=== PATIENT | male | born 1935 | race Caucasian/White ===

== ENCOUNTER 2017-07-17 08:42 | Emergency (ER) | payer MEDICARE ==
[2017-07-17 08:46] VITALS: BP 136/81
--- NOTE | 2017-07-17 09:13 | EDM.PDOC ---
ED HPI GENERAL MEDICAL PROBLEM - General Chief Complaint: General Stated Complaint: MEDICAL VIA [facility] Time Seen by Provider: 07/17/17 09:10 Source of Information: Reports: Patient History Limitations: Reports: No Limitations - History of Present Illness INITIAL COMMENTS - FREE TEXT/NARRATIVE: pt had an episode when he was eating breakfast where he felt very weak. he became shakey and very cool and clamy. Onset: Today, Sudden Duration: Minutes:, Other ( the episode lasted for about 20 minutes. ) Location: Reports: Generalized Associated Symptoms: Reports: Diaphoresis Upper Abdomen Pain Score (Numeric/FACES): 2 - Related Data Allergies Allergy/AdvReac Type Severity Reaction Status Date / Time No Known Allergies Allergy Verified 07/17/17 08:54 Home Meds: Home Meds Clotrimazole/Betamethasone Dip [Lotrisone Cream] 1 applic TP BID 07/30/15 [ History] [place]-3/DHA/Epa/Fish Oil [[place]-3 Fish Oil 1,200 MG Sfgl] 1,200 mg PO DAILY [History] Tamsulosin HCl [Flomax] 0.4 mg PO DAILY 07/30/15 [History] atorvaSTATin [Lipitor] 10 mg PO BEDTIME 07/30/15 [History] Omeprazole 20 mg PO DAILY 07/17/17 [History] traMADol HCl [Tramadol HCl] 50 mg PO Q6H PRN 07/17/17 [History] Past Medical History HEENT History: Reports: Hard of Hearing, Impaired Vision Other HEENT History: wears glasses and hearing aids Cardiovascular History: Reports: High Cholesterol Genitourinary History: Reports: Prostate Disorder, UTI, Recurrent Musculoskeletal History: Reports: Fracture Hematologic History: Reports: Anemia, Iron Deficiency - Infectious Disease History Infectious Disease History: Reports: Chicken Pox, Scarlet Fever, Shingles - Past Surgical History GI Surgical History: Reports: Appendectomy, Colonoscopy Social & Family History - Family History Family Medical History: Noncontributory - Tobacco Use Smoking Status *Q: Never Smoker - Caffeine Use Caffeine Use: Reports: None - Recreational Drug Use Recreational Drug Use: No ED ROS GENERAL - Review of Systems Review Of Systems: See Below Constitutional: Reports: Weakness, Other ( episode of weakness and shaking. He was started on tramodol\ monday-- 5 days ago.) HEENT: Reports: No Symptoms Respiratory: Reports: No Symptoms Cardiovascular: Reports: No Symptoms Endocrine: Reports: No Symptoms GI/Abdominal: Reports: No Symptoms : Reports: No Symptoms Musculoskeletal: Reports: No Symptoms Skin: Reports: No Symptoms Neurological: Reports: Dizziness, Other (pt felt weak and he had an episode of shaking. He was recently started on tramodol. ) Psychiatric: Reports: No Symptoms ED EXAM, GENERAL - Physical Exam Exam: See Below Free Text/Narrative:: pt arrived after he had marked shaking. He did not have a fever. He felt very weak. Exam Limited By: No Limitations General Appearance: Alert, Anxious, Mild Distress, Other (pupils are equal and reactive. ) Ears: Normal TMs Nose: Normal Inspection Throat/Mouth: Normal Inspection Head: Atraumatic Neck: Normal Inspection Respiratory/Chest: No Respiratory Distress Cardiovascular: Regular Rate, Rhythm GI/Abdominal: Soft, Non-Tender (Male) Exam: Deferred Rectal (Males) Exam: Deferred Back Exam: Normal Inspection Extremities: Normal Inspection Neurological: Alert, Oriented, Normal Cognition Psychiatric: Normal Affect Course - Vital Signs Last Recorded V/S: Last Vital Signs Temp 36.7 C 07/17/17 08:48 Pulse 65 07/17/17 08:48 Resp 20 07/17/17 08:48 BP 136/81 07/17/17 08:48 Pulse Ox 95 07/17/17 08:48 Orthostatic Blood Pressure [ 107/72 Standing] Orthostatic Blood Pressure [ 111/78 Sitting] Orthostatic Blood Pressure [ 127/78 Supine] - Orders/Labs/Meds Orders: Active Orders 24 hr Category Date Time Status EKG Documentation Completion [RC] ASDIRECTED Care 07/17/17 09:13 Active Orthostatic Vital Signs [RC] ASDIRECTED Care 07/17/17 09:50 Active UA W/MICROSCOPIC [URIN] Urgent Lab 07/17/17 09:53 Ordered EKG 12 Lead [EK] Routine Ther 07/17/17 09:13 Ordered Labs: Laboratory Tests 07/17/17 07/17/17 07/17/17 Range/Units 09:16 09:16 09:16 WBC 6.5 (4.5-11.0) K/uL RBC 4.55 (4.30-5.90) M/uL Hgb 14.3 (12.0-15.0) g/dL Hct 42.1 (40.0-54.0) % MCV 93 (80-98) fL MCH 31 (27-31) pg MCHC 34 (32-36) % Plt Count 201 (150-400) K/uL Neut % (Auto) 77 H (36-66) % Lymph % (Auto) 14 L (24-44) % [place] % (Auto) 8 H (2-6) % Eos % (Auto) 1 L (2-4) % Baso % (Auto) 0 (0-1) % Sodium 137 L (140-148) mmol/L Potassium 3.6 (3.6-5.2) mmol/L Chloride 102 (100-108) mmol/L Carbon Dioxide 26 (21-32) mmol/L Anion Gap 12.6 (5.0-14.0) mmol/L BUN 17 (7-18) mg/dL Creatinine 1.0 (0.8-1.3) mg/dL Est Cr Clr Drug Dosing 59.61 mL/min Estimated GFR (MDRD) > 60 (>60) Glucose 138 H (74-106) mg/dL Calcium 8.6 (8.5-10.1) mg/dL Total Bilirubin 0.9 (0.2-1.0) mg/dL AST 20 (15-37) U/L ALT 22 (12-78) U/L Alkaline Phosphatase 156 H (46-116) U/L Troponin I < 0.017 (0.000-0.056) ng/mL Total Protein 6.7 (6.4-8.2) g/dL Albumin 3.5 (3.4-5.0) g/dL Globulin 3.2 (2.3-3.5) g/dL Albumin/Globulin Ratio 1.1 L (1.2-2.2) Urine Color Urine Appearance Urine pH (4.5-8.0) Ur Specific [place] (1.008-1.030) Urine Protein (NEGATIVE) mg/dL Urine Glucose (UA) (NEGATIVE) mg/dL Urine Ketones (NEGATIVE) mg/dL Urine Occult Blood (NEGATIVE) Urine Nitrite (NEGAITVE) Urine Bilirubin (NEGATIVE) Urine Urobilinogen (NORMAL) mg/dL Ur Leukocyte Esterase (NEGATIVE) Urine RBC (0-5) Urine WBC (0-5) Ur Epithelial Cells Amorphous Sediment Urine Bacteria Urine Mucus 07/17/17 Range/Units 09:53 WBC (4.5-11.0) K/uL RBC (4.30-5.90) M/uL Hgb (12.0-15.0) g/dL Hct (40.0-54.0) % MCV (80-98) fL MCH (27-31) pg MCHC (32-36) % Plt Count (150-400) K/uL Neut % (Auto) (36-66) % Lymph % (Auto) (24-44) % [place] % (Auto) (2-6) % Eos % (Auto) (2-4) % Baso % (Auto) (0-1) % Sodium (140-148) mmol/L Potassium (3.6-5.2) mmol/L Chloride (100-108) mmol/L Carbon Dioxide (21-32) mmol/L Anion Gap (5.0-14.0) mmol/L BUN (7-18) mg/dL Creatinine (0.8-1.3) mg/dL Est Cr Clr Drug Dosing mL/min Estimated GFR (MDRD) (>60) Glucose (74-106) mg/dL Calcium (8.5-10.1) mg/dL Total Bilirubin (0.2-1.0) mg/dL AST (15-37) U/L ALT (12-78) U/L Alkaline Phosphatase (46-116) U/L Troponin I (0.000-0.056) ng/mL Total Protein (6.4-8.2) g/dL Albumin (3.4-5.0) g/dL Globulin (2.3-3.5) g/dL Albumin/Globulin Ratio (1.2-2.2) Urine Color Yellow Urine Appearance Clear Urine pH 9.0 H (4.5-8.0) Ur Specific [place] 1.015 (1.008-1.030) Urine Protein Negative (NEGATIVE) mg/dL Urine Glucose (UA) Normal (NEGATIVE) mg/dL Urine Ketones Negative (NEGATIVE) mg/dL Urine Occult Blood Negative (NEGATIVE) Urine Nitrite Negative (NEGAITVE) Urine Bilirubin Negative (NEGATIVE) Urine Urobilinogen Normal (NORMAL) mg/dL Ur Leukocyte Esterase Negative (NEGATIVE) Urine RBC 0-5 (0-5) Urine WBC Not seen (0-5) Ur Epithelial Cells Not seen Amorphous Sediment Rare Urine Bacteria Not seen Urine Mucus Not seen - Re-Assessments/Exams Free Text/Narrative Re-Assessment/Exam: 07/17/17 11:39 pt arrived with a episode of shaking and weakness. He felt fine by the time he arrived. He had a normal trop, normal ekg, and his lab work looks ok. 07/17/17 11:40 07/17/17 11:41 there is a concern regarding a tramodol reaction Departure - Departure Time of Disposition: 11:29 Disposition: Home, Self-Care 01 Condition: Fair Clinical Impression: Intolerance of drug, Back complaints - Discharge Information Referrals: PCP,None [Primary Care Provider] - Forms: ED Department Discharge Care Plan Goals: stop tramodol, push fluids, plain tylenol 650 for pain q6h prn. If patient has severe pain tylenol 3 1 tab q6h prn for pain. rtc if problems, appt with Dr Dos Santos in 3-4 days. Use MOM for the constipation. - My Orders Last 24 Hours: My Active Orders 07/17/17 09:13 EKG Documentation Completion [RC] ASDIRECTED EKG 12 Lead [EK] Routine 07/17/17 09:50 Orthostatic Vital Signs [RC] ASDIRECTED 07/17/17 09:53 UA W/MICROSCOPIC [URIN] Urgent - Assessment/Plan Last 24 Hours: My Active Orders 07/17/17 09:13 EKG Documentation Completion [RC] ASDIRECTED EKG 12 Lead [EK] Routine 07/17/17 09:50 Orthostatic Vital Signs [RC] ASDIRECTED 07/17/17 09:53 UA W/MICROSCOPIC [URIN] Urgent
--- NOTE | 2017-07-17 09:49 | CR ---
CHEST: 2 view CLINICAL HISTORY:Shortness of breath COMPARISON:2009 FINDINGS: Heart and pulmonary vascularity appear normal. There are atherosclerotic changes in the ao rta.. No infiltrate effusion or pneumothorax seen. Lungs are hyperaerated.. IMPRESSION: Mild hyperaeration. No acute cardiopulmonary process
== END 2017-07-17 11:45 | disposition home or self-care (01) ==
LOC: JP.ED 08:42
DX: R53.1 Weakness (principal); T40.4X5A Adverse effect of other synthetic narcotics, initial encounter; Z79.899 Other long term (current) drug therapy
CPT/HCPCS: 36415; 71046; 71046-26; 80053; 81001; 84484; 85025; 93005; 99284-25

== ENCOUNTER 2019-04-03 15:46 | Emergency (ER) | payer MEDICARE ==
--- NOTE | 2019-04-03 17:03 | EDM.PDOC ---
ED HPI GENERAL MEDICAL PROBLEM - General Chief Complaint: Chest Pain Stated Complaint: CHEST PAIN Time Seen by Provider: 04/03/19 16:35 Source of Information: Reports: Patient, Family History Limitations: Reports: No Limitations - History of Present Illness INITIAL COMMENTS - FREE TEXT/NARRATIVE: 83-year-old male who has a 30-day event monitor in place to monitor recurring atrial fibrillation was started on metoprolol and Eliquis on March 11. Today he was having a fairly persistent episode of irregular heartbeat with some mild chest pressure so called the cardiology department and was told to come to the emergency room. He arrived in atrial fibrillation with a rate of 110-120. Very slight chest pressure, no shortness of breath. Onset: Sudden (Palpitations started fairly suddenly a few hours ago) Location: Reports: Chest Associated Symptoms: Reports: Chest Pain (Minimal chest pressure), Other ( Palpitations). Denies: Fever/Chills, Nausea/Vomiting, Shortness of Breath Chest Pain Score (Numeric/FACES): 3 - Related Data Allergies Allergy/AdvReac Type Severity Reaction Status Date / Time No Known Allergies Allergy Verified 10/24/17 08:54 Home Meds: Home Meds Clotrimazole/Betamethasone Dip [Lotrisone Cream] 1 applic TP BID 07/30/15 [ History] [place]-3/DHA/Epa/Fish Oil [[place]-3 Fish Oil 1,200 MG Sfgl] 500 mg PO DAILY [History] Tamsulosin HCl [Flomax] 0.4 mg PO DAILY 07/30/15 [History] atorvaSTATin [Lipitor] 10 mg PO BEDTIME 07/30/15 [History] Acetaminophen [Tylenol Arthritis] 1 tab PO BEDTIME 04/03/19 [History] Apixaban [Eliquis] 1 tab PO BID 04/03/19 [History] Cholecalciferol (Vitamin D3) [D3-2000] 1 cap PO DAILY 04/03/19 [History] Metoprolol Tartrate 12.5 mg PO BID 04/03/19 [History] Past Medical History HEENT History: Reports: Hard of Hearing, Impaired Vision Other HEENT History: wears glasses and hearing aids Cardiovascular History: Reports: High Cholesterol Genitourinary History: Reports: BPH, Prostate Disorder, UTI, Recurrent Musculoskeletal History: Reports: Fracture Hematologic History: Reports: Anemia, Iron Deficiency - Infectious Disease History Infectious Disease History: Reports: Chicken Pox, Measles, Scarlet Fever - Past Surgical History GI Surgical History: Reports: Appendectomy, Colonoscopy Social & Family History - Family History Family Medical History: Noncontributory - Tobacco Use Smoking Status *Q: Former Smoker Years of Tobacco use: 5 Packs/Tins Daily: 1 Used Tobacco, but Quit: Yes Month/Year Tobacco Last Used: 11/1965 - Caffeine Use Caffeine Use: Reports: None - Recreational Drug Use Recreational Drug Use: No ED ROS GENERAL - Review of Systems Review Of Systems: See Below Constitutional: Denies: Fever, Chills, Malaise HEENT: Reports: No Symptoms Respiratory: Denies: Shortness of Breath Cardiovascular: Reports: Chest Pain, Palpitations GI/Abdominal: Denies: Abdominal Pain, Nausea, Vomiting Skin: Reports: No Symptoms Neurological: Denies: Dizziness, Headache Psychiatric: Reports: No Symptoms ED EXAM, GENERAL - Physical Exam Exam: See Below Exam Limited By: No Limitations General Appearance: Alert, No Apparent Distress Eye Exam: Bilateral Eye: Normal Inspection Head: Atraumatic Respiratory/Chest: No Respiratory Distress, Lungs Clear Cardiovascular: Irregularly Irregular GI/Abdominal: Soft, Non-Tender Extremities: Normal Inspection. No: Pedal Edema Neurological: Alert, Oriented, No Motor/Sensory Deficits Psychiatric: Normal Affect, Normal Mood Skin Exam: Warm, Dry Course - Vital Signs Last Recorded V/S: Last Vital Signs Temp 96.2 F L 04/03/19 16:23 Pulse 60 04/03/19 17:14 Resp 10 L 04/03/19 17:14 BP 118/82 04/03/19 17:14 Pulse Ox 97 04/03/19 17:14 - Orders/Labs/Meds Labs: Laboratory Tests 04/03/19 Range/Units 17:02 Troponin I < 0.017 (0.000-0.056) ng/mL - Re-Assessments/Exams Free Text/Narrative Re-Assessment/Exam: 04/03/19 17:04 15 minutes after the patient arrived, he converted into normal sinus rhythm. His symptoms resolved. A troponin was obtained and the patient was kept on the cardiac cath technologist. 04/03/19 17:41 Patient remained in normal sinus rhythm for over 45 minutes, troponin returned 0 and he was also asymptomatic. Continue his medications and recheck as scheduled. Departure - Departure Time of Disposition: 17:56 Disposition: Home, Self-Care 01 Clinical Impression: Paroxysmal atrial fibrillation with RVR Instructions: Atrial Fibrillation, [id number] Referrals: Karen Moise MD [Primary Care Provider] - Forms: ED Department Discharge Care Plan Goals: Continue your medications including a full pill of metoprolol twice daily. Return if symptoms are recurring and are persistent, even if you take an extra metoprolol. Especially if short of breath, weak, or chest pain. Otherwise recheck with your center customer service associate as scheduled. Sepsis Event Note - Evaluation Sepsis Screening Result: No Definite Risk - Focused Exam Date Exam was Performed: 04/04/19 Time Exam was Performed: 12:26
[2019-04-03 17:14] VITALS: PULSE 60
[2019-04-03 17:15] VITALS: BP 118/82
== END 2019-04-03 17:57 | disposition home or self-care (01) ==
LOC: JP.ED 15:46
DX: I48.91 Unspecified atrial fibrillation (principal); Z79.899 Other long term (current) drug therapy; Z87.891 Personal history of nicotine dependence
CPT/HCPCS: 36415; 84484; 99283; 99284

== ENCOUNTER 2022-08-22 14:11 | Emergency (ER) | payer MEDICARE ==
[2022-08-22 16:12] LABS: BASOPHILS ABSOLUTE AUTO 0.02 K/uL (0.00-0.10); BASOPHILS PERCENT AUTO 0.3 % (0.1-1.3); EOSINOPHILS ABSOLUTE AUTO 0.02 K/uL (0.00-0.40); EOSINOPHILS PERCENT AUTO 0.3 % (0.0-5.4); HEMATOCRIT 41.5 % (38.4-49.7); HEMOGLOBIN 14.3 g/dL (12.9-16.9); IMMATURE GRAN ABSOLUTE AUTO 0.02 K/uL (0.00-0.23); IMMATURE GRAN PERCENT AUTO 0.3 % (0.0-0.7); LYMPHOCYTES ABSOLUTE AUTO 2.33 K/uL (0.8-3.3); LYMPHOCYTES PERCENT AUTO 32.2 % (11.4-47.7); MEAN CORPUSCULAR HEMOGLOBIN 32.2 pg (31.6-35.5); MEAN CORPUSCULAR HGB CONC 34.5 g/dL (31.6-35.5); MEAN CORPUSCULAR VOLUME 93.5 fL (81.4-99.0); MONOCYTES PERCENT AUTO 8.3 % (3.3-12.6); NEUTROPHILS ABSOLUTE AUTO 4.25 K/uL (1.0-7.6); NEUTROPHILS PERCENT AUTO 58.6 % (40.0-78.1); PLATELET COUNT,PLT 149 K/uL (130-375); RED BLOOD CELL COUNT 4.44 M/uL (4.14-5.76); WHITE BLOOD CELL COUNT,WBC 7.2 K/uL (3.2-11.0)
[2022-08-22 16:33] LABS: CALCIUM 8.9 mg/dL (8.5-10.1); CREATININE 0.8 mg/dL (0.8-1.3); EST CRCL DRUG DOSING (CG) 67.98 mL/min; MAGNESIUM 2.1 mg/dL (1.8-2.4); TROPONIN I HIGH SENSITIVITY 6.2 pg/mL (<=60.3)
[2022-08-22 16:45] VITALS: BP 109/79; PULSE 71
== END 2022-08-22 17:02 | disposition home or self-care (01) ==
LOC: JP.ED 14:11
DX: R00.2 Palpitations (principal); E78.00 Pure hypercholesterolemia, unspecified; I48.91 Unspecified atrial fibrillation; Z86.16 Personal history of COVID-19; Z79.01 Long term (current) use of anticoagulants; Z79.899 Other long term (current) drug therapy
CPT/HCPCS: 36415; 71046; 71046-26; 80048; 83735; 84484; 85025; 93005; 99285